=== PATIENT | female | born 1980 | race Caucasian/White ===

== ENCOUNTER 2016-06-04 16:43 | Emergency (ER) | payer OTHER ==
[2016-06-04] MEDS ORDERED: ONDANSETRON DISINTEGRATING 4 MG TAB PO ONE (16:59)
[2016-06-04] MEDS ORDERED: NS 1,000 ML IV ONE ×2 (17:37→19:28)
--- NOTE | 2016-06-04 17:42 | UCPHY ---
H & P Patient Type: New Chief Complaint Nursing Narrative: C/o sore throat, nausea, chills since yesterday and stiff neck/ neck pain since today. Denies trauma/injury, fever, FERNANDEZ. Time Seen by Provider: 06/04/16 17:11 HPI/ROS: CHIEF COMPLAINT: Neck pain, chills, sore throat HISTORY OF PRESENT ILLNESS: 35-year-old female developed a sore throat yesterday. She went to bed early and woke at 6 o'clock this morning with pain at the base of her neck. Patient also reports chills and nausea today. No fever. She has been somewhat congested and stuffy nose today. No complaints of headache. Patient is very uncomfortable with severe neck pain. She reports nothing has made her pain better including narcotic medications or muscle relaxants. Discomfort is worse with movement. No numbness or tingling in her arms or legs. No trauma to the head. No headache. No influenza vaccination. No fever, chest pain, shortness of breath, palpitations, vomiting, diarrhea, urinary complaints, headache, lightheadedness. REVIEW OF SYSTEMS: Aside from elements discussed in the HPI, a comprehensive 10-point review of systems was reviewed and is negative. PAST MEDICAL HISTORY: Recent surgery with her fallopian tubes removed. SOCIAL HISTORY: Occasional smoker, denies IVDA. VITAL SIGNS Reviewed by me. GENERAL: Well-developed, well-nourished, tearful, uncomfortable, complaining of pain at the base of her neck.. HEENT: Atraumatic. Eyes: No icterus, no injection. EOMI. ТАТЬЯНА. Mouth: moist mucous membranes. Mild erythema of the throat. No exudates. No tonsillar enlargement. No vesicles. Neck: Palpable tenderness at the base of the neck and trapezius muscles. Discomfort with flexion and extension of the neck. Negative Kernig's. Negative Brudzinski's. No palpable adenopathy. LUNGS: Clear to auscultation bilaterally, no wheezes, rhonchi or rales. CARDIAC: Regular rate and rhythm, no rubs, murmurs or gallops. ABDOMEN: Soft, nontender, nondistended, bowel sounds normal. BACK: No CVA tenderness. EXTREMITIES: No trauma. No edema. Range of motion is normal throughout. NEURO: Alert and oriented x3. Cranial nerves 2-12 are intact. Motor strength 5/ 5 in all major muscle groups. Sensation intact to light touch throughout. Normal gait. SKIN: Warm and dry, no rash. PSYCHIATRIC: Normal mentation, no agitation. - Personal History LMP (Females 10-55): 22-28 Days Ago Current Tetanus/Diphtheria Vaccine: Unsure Current Tetanus Diphtheria and Acellular Pertussis (TDAP): Unsure - Medical/Surgical History Hx Asthma: No Hx Chronic Respiratory Disease: No Hx Diabetes: No Hx Cardiac Disease: No Hx Renal Disease: No Hx Cirrhosis: No Hx Alcoholism: No Hx HIV/AIDS: No Hx Splenectomy or Spleen Trauma: No Other PMH: C section, fallopian tube removal - Family History Significant Family History: No pertinent family hx - Social History Smoking Status: Current some day smoker Constitutional: Initial Vital Signs Temperature (C) 37.4 C 06/04/16 16:52 Heart Rate 99 06/04/16 16:52 Respiratory Rate 16 06/04/16 16:52 Blood Pressure 155/92 H 06/04/16 16:52 O2 Sat (%) 98 06/04/16 16:52 O2 Delivery Mode Room Air Allergies/Adverse Reactions: No Known Allergies Allergy (Verified 06/04/16 16:56) Home Medications: Medication Instructions Recorded Hydrocodone/APAP 5/325 [[place] 1 tab PO Q6H PRN #10 tab 06/04/16 5/325 (RX)] Oseltamivir Phosphate [Tamiflu 75 75 mg PO BID 5 Days 06/04/16 mg (*)] Medical Decision Making - Diagnostics Imaging: X-ray: Soft tissue lateral of the neck was obtained. I viewed the images myself on the PACS system. My interpretation of the images is: No evidence for deep space abscess. Epiglottis is normal. Some straightening of the normal neck occurred sure presumably secondary to muscle spasm. The radiologist interpretation is agrees. I discussed the x-ray findings with the patient. ED Course/Re-evaluation: IV was established in the patient received 2 L of normal saline. Lab work demonstrates no significant leukocytosis. Patient's influenza test is positive for influenza A. Patient received Dilaudid for her neck discomfort. She received Toradol. On re-evaluation the patient reports feeling better with the pain medications. She looks significantly improved after her. 2nd L of fluid. She is moving her head without difficulty. She has no meningismus. She does have some tenderness in the musculature of the posterior neck. I doubt that she has bacterial meningitis. I did discuss with the patient the possibility of a viral meningitis with influenza. We discussed performing a lumbar puncture. Patient understands the risks and benefits of a lumbar puncture. She would prefer not to undergo this procedure at this time. She continues to have no headache. She feels comfortable being discharged with supportive care including fluids, Tamiflu, antipyretics, and plenty of rest. She understands that if her symptoms are worsening she should be re-evaluated. She understands that if she develops worsening neck pain, worsening headache, confusion, vomiting, or other concerns she needs to be seen urgently. Differential Diagnosis: Differential diagnoses for the patient's symptom complex was considered including but not limited to strep pharyngitis, deep space infection, retropharyngeal infection, meningitis, viral syndrome, influenza. - Data Points Laboratory Results: Laboratory Results 06/04/16 17:47 06/04/16 17:47 06/04/16 06/04/16 06/04/16 Unknown 17:50 17:47 WBC 4.39 10^3/uL 10^3/uL (3.80-9.50) RBC 4.91 10^6/uL 10^6/uL (4.18-5.33) Hgb 14.3 g/dL g/dL (12.6-16.3) Hct 44.2 % % (38.0-47.0) MCV 90.0 fL fL (81.5-99.8) MCH 29.1 pg pg (27.9-34.1) MCHC 32.4 g/dL g/dL (32.4-36.7) RDW 13.8 % % (11.5-15.2) Plt Count 190 10^3/uL 10^3/uL (150-400) MPV 9.5 fL fL (8.7-11.7) Neut % (Auto) 61.5 % % (39.3-74.2) Lymph % (Auto) 19.1 % % (15.0-45.0) [place] % (Auto) 10.5 % % (4.5-13.0) Eos % (Auto) 7.5 % % (0.6-7.6) Baso % (Auto) 0.9 % % (0.3-1.7) Nucleat RBC Rel Count 0.0 % % (0.0-0.2) Absolute Neuts (auto) 2.70 10^3/uL 10^3/uL (1.70-6.50) Absolute Lymphs (auto) 0.84 10^3/uL L 10^3/uL (1.00-3.00) Absolute Monos (auto) 0.46 10^3/uL 10^3/uL (0.30-0.80) Absolute Eos (auto) 0.33 10^3/uL 10^3/uL (0.03-0.40) Absolute Basos (auto) 0.04 10^3/uL 10^3/uL (0.02-0.10) Absolute Nucleated RBC 0.00 10^3/uL 10^3/uL (0-0.01) Immature Gran % 0.5 % % (0.0-1.1) Immature Gran # 0.02 10^3/uL 10^3/uL (0.00-0.10) Sodium Potassium Chloride Carbon Dioxide Anion Gap BUN Creatinine Estimated GFR Glucose Calcium Influenza Typ A,B (DFA) POSITIVE FOR FLU A H (NEGATIVE) Group A Strep Screen Group A Strep DNA Pending 06/04/16 06/04/16 17:47 17:00 WBC RBC Hgb Hct MCV MCH MCHC RDW Plt Count MPV Neut % (Auto) Lymph % (Auto) [place] % (Auto) Eos % (Auto) Baso % (Auto) Nucleat RBC Rel Count Absolute Neuts (auto) Absolute Lymphs (auto) Absolute Monos (auto) Absolute Eos (auto) Absolute Basos (auto) Absolute Nucleated RBC Immature Gran % Immature Gran # Sodium 139 mEq/L mEq/L (134-144) Potassium 4.2 mEq/L mEq/L (3.5-5.2) Chloride 101 mEq/L mEq/L (97-110) Carbon Dioxide 24 mEq/l mEq/l (22-31) Anion Gap 14 mEq/L mEq/L (8-16) BUN 17 mg/dL mg/dL (7-23) Creatinine 0.8 mg/dL mg/dL (0.6-1.0) Estimated GFR > 60 Glucose 88 mg/dL mg/dL (70-100) Calcium 9.1 mg/dL mg/dL (8.5-10.4) Influenza Typ A,B (DFA) Group A Strep Screen NEGATIVE (NEGATIVE) Group A Strep DNA Medications Given: Discontinued Medications Hydromorphone HCl (Dilaudid) 1 mg IVP EDNOW ONE Stop: 06/04/16 17:50 Last Admin: 06/04/16 18:08 Dose: 1 mg Sodium Chloride (Ns) 1,000 mls @ 0 mls/hr IV ONCE ONE PRN Reason: Wide Open Stop: 06/04/16 17:38 Last Admin: 06/04/16 18:08 Dose: 1,000 mls Sodium Chloride (Ns) 1,000 mls @ 0 mls/hr IV ONCE ONE PRN Reason: Wide Open Stop: 06/04/16 19:29 Last Admin: 06/04/16 19:28 Dose: 1,000 mls Ketorolac Tromethamine (Toradol) 30 mg IVP EDNOW ONE Stop: 06/04/16 18:55 Last Admin: 06/04/16 19:15 Dose: 30 mg Ondansetron HCl (Zofran Odt) 4 mg PO EDNOW ONE Stop: 06/04/16 17:00 Last Admin: 06/04/16 17:03 Dose: 4 mg Oseltamivir Phosphate (Tamiflu) 75 mg PO EDNOW ONE Stop: 06/04/16 18:10 Last Admin: 06/04/16 18:32 Dose: 75 mg Departure - Departure Disposition: Home, Routine, Self-Care Condition: Good Instructions: Influenza (ED) Additional Instructions: Your influenza test is positive. You been given a prescription for Tamiflu. This may shorten the duration of your illness and lessen your symptoms but it is not a cure. I recommend Ibuprofen (Motrin, Advil) or Naproxen Sodium (Aleve) for pain and anti-inflammatory effects. You may take either one, but do not take both. Your dose is: Ibuprofen 600 mg every 6-8 hours with food. OR Naproxen Sodium (Aleve) 220 mg every 12 hours. You have also been given a prescription for hydrocodone. You may take this as needed for severe neck discomfort or muscle pain. If her symptoms are worsening despite these measures, specially if you developed high fevers, significant headache, worsening neck pain, or other concerns, please follow-up at urgent care or emergency department or return seek care urgently with her primary care physician. Referrals: NONE *PRIMARY CARE P,. [Primary Care Provider] - As per Instructions Prescriptions: Hydrocodone/APAP 5/325 [[place] 5/325 (RX)] 1 tab PO Q6H PRN #10 tab PRN Reason: Pain Oseltamivir Phosphate [Tamiflu 75 mg (*)] 75 mg PO BID 5 Days - PQRS PQRS Measurement: Not applicable
[2016-06-04] MEDS ORDERED: HYDROmorphONE/DILAUDID 1 MG/ML SYR IVP ONE (17:49)
[2016-06-04 17:50] LABS: % IMMATURE GRANULYOCYTES 0.5 % (0.0-1.1); ABSOLUTE IMMATURE GRANULOCYTES 0.02 10^3/uL (0.00-0.10); ADD DIFF? NO; ADD MORPH? NO; ADD SCAN? NO; ATYPICAL LYMPHOCYTE FLAG 10 (0-99); FRAGMENT RBC FLAG 0 (0-99); HEMATOCRIT 44.2 % (38.0-47.0); HEMOGLOBIN 14.3 g/dL (12.6-16.3); LEFT SHIFT FLG 0 (0-99); LIPEMIA HEMOLYSIS FLAG 80 (0-99); MEAN CELL HEMOGLOBIN 29.1 pg (27.9-34.1); MEAN CELL HEMOGLOBIN CONCENTR. 32.4 g/dL (32.4-36.7); MEAN PLATELET VOLUME 9.5 fL (8.7-11.7); PLATELET CLUMPS FLAG 10 (0-99); PLATELET COUNT 190 10^3/uL (150-400); RED BLOOD CELL COUNT 4.91 10^6/uL (4.18-5.33); RED CELL DISTRIBUTION WIDTH 13.8 % (11.5-15.2)
[2016-06-04 18:02] LABS: ANION GAP 14 mEq/L (8-16); CALCIUM 9.1 mg/dL (8.5-10.4); CARBON DIOXIDE 24 mEq/l (22-31); CHLORIDE 101 mEq/L (97-110); CREATININE 0.8 mg/dL (0.6-1.0); GLOMERULAR FILTRATION RATE > 60; GLUCOSE 88 mg/dL (70-100); POTASSIUM 4.2 mEq/L (3.5-5.2); SODIUM 139 mEq/L (134-144)
[2016-06-04] MEDS ORDERED: OSELTAMIVIR PHOSPHATE 75 MG CAP PO ONE (18:09)
[2016-06-04 18:33] VITALS: RESP 20
[2016-06-04] MEDS ORDERED: KETOROLAC 30 MG/1 ML SDV IVP ONE (18:54)
[2016-06-04 21:19] VITALS: BP 122/80; PULSE 81; TEMP 99.1; O2SAT 93
== END 2016-06-04 20:45 | disposition home or self-care (01) ==
LOC: CED 16:43
DX: J10.1 Influenza due to other identified influenza virus with other respiratory manifestations (principal); M54.2 Cervicalgia; Z72.0 Tobacco use
CPT/HCPCS: 70360-PO; 80048-PO; 85025-PO; 87400-PO; 87880-PO; 96361-PO; 96374-PO; 96375-PO; 99205-PO; G0463-PO; J1170; J1885

== ENCOUNTER 2016-09-14 18:27 | Emergency (ER) | payer OTHER ==
[2016-09-14 18:45] VITALS: BP 160/88; PULSE 91; RESP 18; TEMP 98.1; O2SAT 97
[2016-09-14] MEDS ORDERED: HYDROCODONE/APAP 5/325 TAB PO ONE (18:53)
[2016-09-14] MEDS ORDERED: IBUPROFEN 800 MG TAB PO ONE (18:53)
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
[2016-09-14] MEDS ORDERED: IBUPROFEN 200 MG TAB PO ONE (19:13)
== END 2016-09-14 19:20 | disposition home or self-care (01) ==
LOC: CED 18:27
DX: S67.191A Crushing injury of left index finger, initial encounter (principal); S60.411A Abrasion of left index finger, initial encounter; Z87.891 Personal history of nicotine dependence; W23.1XXA Caught, crushed, jammed, or pinched between stationary objects, initial encounter; Y92.009 Unspecified place in unspecified non-institutional (private) residence as the place of occurrence of the external cause
CPT/HCPCS: 73140-PO

== ENCOUNTER → 2017-12-01 | Outpatient (CLI) | payer OTHER | LOC: CIMAGING 07:09 | PROVIDERS: ATTEND Physician Assistant | DX: R16.0 Hepatomegaly, not elsewhere classified (principal) | CPT/HCPCS: 76700-PO ==